=== PATIENT | female | born 1960 | race Caucasian/White ===

== ENCOUNTER → 2022-02-16 | Day surgery (SDC) | payer BC | END | disposition home or self-care (01) | LOC: JRADUS-SUR 08:28 | PROVIDERS: ATTEND Specialist | PROC: 0H9U3ZX Drainage of Left Breast, Percutaneous Approach, Diagnostic (ICD-10-PCS; principal; 2022-02-16) | DX: N63.20 Unspecified lump in the left breast, unspecified quadrant (principal); N60.12 Diffuse cystic mastopathy of left breast | CPT/HCPCS: 19083; 77065-TC; 87899; 88305-TC; A4648 ==

== ENCOUNTER 2022-04-28 04:38 | Day surgery (SDC) | payer BC ==
[2022-04-21 14:09] VITALS: BMI 20.2
[2022-04-28 12:16] VITALS: TEMP 97.5
[2022-04-28 12:46] VITALS: BP 115/79; PULSE 64
== END 2022-04-28 12:56 | disposition home or self-care (01) ==
LOC: JASU-ENDO 04:38
PROVIDERS: ATTEND Internal Medicine Gastroenterology
PROC: 0DBH8ZX Excision of Cecum, Via Natural or Artificial Opening Endoscopic, Diagnostic (ICD-10-PCS; principal; 2022-04-28 10:30)
DX: Z12.11 Encounter for screening for malignant neoplasm of colon (principal); K64.8 Other hemorrhoids; K63.89 Other specified diseases of intestine; Z86.010 Personal history of colon polyps
CPT/HCPCS: 88305-TC

== ENCOUNTER 2024-06-27 04:06 | Day surgery (SDC) | payer BC ==
[2024-06-23 17:09] VITALS: BMI 19.1
[2024-06-27] MEDS ORDERED: MIDAZOLAM HCL 2 MG/2 ML SINGLE DOSE VIAL ONE ×2 (09:42→10:17)
[2024-06-27] MEDS ORDERED: ONDANSETRON 4 MG/2 ML VIAL ONE (09:43)
[2024-06-27] MEDS ORDERED: DEXAMETHASONE SOD PHOSPHATE 4 MG/1 ML VIAL ONE (09:43)
[2024-06-27] MEDS ORDERED: PROPOFOL 20 ML ONE (10:33)
[2024-06-27 11:06] VITALS: TEMP 97.8
[2024-06-27] MEDS: LACTATED RINGERS SOLUTION 1,000 ML IV SCH (11:15)
[2024-06-27] MEDS ORDERED: ONDANSETRON 4 MG/2 ML VIAL IVPUSH PRN (11:29)
[2024-06-27] MEDS ORDERED: ACETAMINOPHEN 500 MG TABLET (FP) PO ONE (11:29)
[2024-06-27] MEDS ORDERED: ELECTROLYTE-148 SOLN 1,000 ML IV SCH (11:45)
[2024-06-27 11:57] VITALS: BP 126/83; PULSE 75; RESP 18
== END 2024-06-27 11:50 | disposition home or self-care (01) ==
LOC: JASU-SURG 04:06
PROVIDERS: ATTEND Urology
PROC: 0TF4XZZ Fragmentation in Left Kidney Pelvis, External Approach (ICD-10-PCS; principal; 2024-06-27 10:00)
DX: N20.0 Calculus of kidney (principal)
CPT/HCPCS: 94760